=== PATIENT | female | born 1970 | race Two or more races ===

== ENCOUNTER → 2017-08-12 | Outpatient (CLI) | payer MEDICAID ==
[~2017-08-12] MED LIST: BUPR-126 PO; MULT1CAP59 PO; TRAZ150T8 PO; [UNRECOGNIZED DRUG - CODE] OU
--- NOTE | 2017-08-12 15:15 | RADIOLOGY IMAGING REPORT ---
FACILITY: [facility] [place] PATIENT NAME: Eli Winkler : 1970 MR: [id number] V: [id number] EXAM DATE: ORDERING PHYSICIAN: JOSE DC TECHNOLOGIST: Location: [facility] Patient: Eli Winkler : 1970 Visit/Account:[id number] Date of Sevice: 08/12/2017 Exam type: KNEE 3 VIEWS BILATERAL History: Pain in both knees and right elbow x1 year Comparison: None. Findings: Three views of both knees reveal mild narrowing of the medial compartment bilaterally. There is no d emonstration of acute fracture dislocation or intra-articular loose body in either knee. No lytic or blastic bone lesions are seen IMPRESSION: 1. Mild narrowing the medial compartment of both knees Report Dictated By: Gena Woodson MD at 08/12/2017 3:08 PM Report E-Signed By: Gena Woodson MD at 08/12/2017 3:10 PM WSN:[email or web address]
--- NOTE | 2017-08-12 15:17 | RADIOLOGY IMAGING REPORT ---
FACILITY: [facility] - [place] PATIENT NAME: Eli Winkler : 1970 MR: [id number] V: [id number] EXAM DATE: ORDERING PHYSICIAN: JOSE DC TECHNOLOGIST: Location: [facility] Patient: Eli Winkler : 1970 Visit/Account:[id number] Date of Sevice: 08/12/2017 Exam type: ELBOW 3 VIEWS RIGHT History: Pain x1 year Comparison: None. Findings: There is a curvilinear bony density projecting just medial to the medial humeral epicondyle. This ma y be the sequelae of old trauma or degenerative in nature. There is no evidence of acute fracture or dislocation involving the right elbow. No evidence of an intra-articular effusion. No lytic or merritt stic bone lesion is seen IMPRESSION: 1. Small curvilinear bony density projects just medial to the medial humeral epicondyles which could be the sequelae of old trauma or degenerative in nature Report Dictated By: Gena Woodson MD at 08/12/2017 3:10 PM Report E-Signed By: Gena Woodson MD at 08/12/2017 3:12 PM WSN:[email or web address]
== END ==
LOC: RAD 08:25
PROVIDERS: ATTEND Family Medicine
DX: M25.562 Pain in left knee (principal); M25.561 Pain in right knee; M25.521 Pain in right elbow; M25.511 Pain in right shoulder; E66.9 Obesity, unspecified
CPT/HCPCS: 36415; 82040; 82247; 82310; 82374; 82435; 82565; 82947; 83036; 84075; 84132; 84155; 84295; 84443; 84450; 84460; 84520; 85027; 85651; 86140; 86430

== ENCOUNTER → 2018-03-17 | Outpatient (CLI) | payer MEDICAID ==
[2018-03-17 11:16] LABS: LDL CHOLESTEROL 75 mg/dl
--- NOTE | 2018-03-17 11:43 | RADIOLOGY IMAGING REPORT ---
FACILITY: [facility] PATIENT NAME: ALONSO DE LA ROSA : [id number] MR: [id number] V: [id number] EXAM DATE: ORDERING PHYSICIAN: MILLIE ARREDONDO TECHNOLOGIST: Estrella Antoine PROCEDURE:BILATERAL DIGITAL SCREENING MAMMOGRAM WITH CAD ASSISTED INTERPRETATION & 3D TOMOSYNTHESIS COMPARISON:None. This is the patient's baseline mammogram. INDICATIONS:SCREENING FINDINGS: A small amount of fibroglandular tissue is seen throughout the breasts. There is a small nodular area in the lateral portion of the Right breast on the Right CC view in the middle 1/3 for which Spot compression is recommended. There is a vague area of increased density in the upper portion of the Left breast on the Left MLO view in the middle 1/3 for which Spot compression view is recommended. Also noted is a nodular density in the inferior portion of the Left breast in the anterior 1/3 for which Spot compression view is recommended. There is a vague area of increased density just lateral to midline junction of the middle and anterior 1/3 of the Left breast on Left CC view for which Spot compression view is recommended. DIAGNOSTIC CATEGORY 0--INCOMPLETE: NEED ADDITIONAL IMAGING EVALUATION. RECOMMENDATIONS: ADDITIONAL MAMMOGRAPHIC VIEWS REQUIRED: BILATERAL BREASTS. ULTRASOUND: BILATERAL BREASTS. IMPRESSION: BIRADS 0: Incomplete. Additional views of both breasts recommend as described and possibly bilateral breast Ultrasound depending upon the additional imaging findings. Dictated by: Gena Woodson M.D. on 03/17/2018 at 10:31 Transcribed by: HARDEEP on 03/17/2018 at 11:16 Approved by: Gena Woodson M.D. on 03/17/2018 at 11:42 [facility]
== END ==
LOC: MAMO 03-05 07:08
PROVIDERS: ATTEND Nurse Practitioner Family
DX: Z12.31 Encounter for screening mammogram for malignant neoplasm of breast (principal); E11.8 Type 2 diabetes mellitus with unspecified complications; I10 Essential (primary) hypertension; R92.8 Other abnormal and inconclusive findings on diagnostic imaging of breast
CPT/HCPCS: 36415; 77063; 77067; 82040; 82043; 82247; 82310; 82374; 82435; 82465; 82565; 82947; 83718; 84075; 84132; 84155; 84295; 84450; 84460; 84478; 84520

== ENCOUNTER → 2018-04-07 | Outpatient (CLI) | payer MEDICAID ==
--- NOTE | 2018-04-08 13:07 | RADIOLOGY IMAGING REPORT ---
FACILITY: [facility] - [place] PATIENT NAME: ALONSO DE LA ROSA : [id number] MR: [id number] V: [id number] EXAM DATE: ORDERING PHYSICIAN: MILLIE ARREDONDO TECHNOLOGIST: Kristal Delgado RDMS PROCEDURE:US LEFT BREAST COMPLETE COMPARISON:Today's Left diagnostic mammogram. INDICATIONS:Further Evaluation. FINDINGS: The entire Left breast was imaged revealing no sonographic abnormality to account for the nodular densities seen posterior to mid nipple line on the Left CC view and inferior to the nipple on the Left MLO view therefore 6 month follow-up bilateral mammogram recommended as described in Today's mammogram report. DIAGNOSTIC CATEGORY 3--PROBABLY BENIGN FINDING. RECOMMENDATIONS: SIX MONTH FOLLOW-UP DIAGNOSTIC MAMMOGRAM: BILATERAL BREASTS. IMPRESSION: BIRADS 3: Probably benign finding. A 6 month follow-up bilateral mammogram recommended as described above. Dictated by: Gena Woodson M.D. on 04/07/2018 at 18:11 Transcribed by: HARDEEP on 04/08/2018 at 9:03 Approved by: Gena Woodson M.D. on 04/08/2018 at 13:05 [facility]
--- NOTE | 2018-04-08 13:07 | RADIOLOGY IMAGING REPORT ---
FACILITY: [facility] PATIENT NAME: ALONSO DE LA ROSA : [id number] MR: [id number] V: [id number] EXAM DATE: [id number] ORDERING PHYSICIAN: MILLIE ARREDONDO TECHNOLOGIST: Khushi Garza PROCEDURE:BILATERAL DIAGNOSTIC DIGITAL MAMMOGRAM WITH CAD ASSISTED INTERPRETATION & 3D TOMOSYNTHESIS COMPARISON:Prior mammogram 03/17/18. INDICATIONS:FURTHER EVAL FINDINGS: The patient returned for Spot compression views in the Right & Left CC projections and the Left MLO projection. There is a small nodular density seen in the mid to posterior 1/3 of the Right breast just lateral to midline. A small nodular density is also seen posterior to midline on the Left CC view. There also appears to be a small nodular density in the anterior 1/3 of the Left breast just inferior to the mid nipple line. The other additional areas of increased density in the upper portion of the Left breast on the prior MLO view appear compressible. No sonographic correlate could be found to account for these nodular densities therefore a 6 month follow-up bilateral mammogram is recommended unless clinical findings warrant more immediate attention. DIAGNOSTIC CATEGORY 3--PROBABLY BENIGN FINDING. RECOMMENDATIONS: SIX MONTH FOLLOW-UP DIAGNOSTIC MAMMOGRAM: BILATERAL BREASTS. IMPRESSION: BIRADS 3: Probably benign finding. A 6 month follow-up bilateral mammogram is recommended as described above. Dictated by: Gena Woodson M.D. on 04/07/2018 at 18:09 Transcribed by: HARDEEP on 04/08/2018 at 8:50 Approved by: Gena Woodson M.D. on 04/08/2018 at 13:05 [facility]
--- NOTE | 2018-04-08 13:07 | RADIOLOGY IMAGING REPORT ---
FACILITY: [facility] - [place] PATIENT NAME: ALONSO DE LA ROSA : [id number] MR: [id number] V: [id number] EXAM DATE: ORDERING PHYSICIAN: MILLIE ARREDONDO TECHNOLOGIST: Kristal Delgado RDMS PROCEDURE:US RIGHT BREAST COMPARISON:Today's diagnostic mammogram. INDICATIONS:Further Evaluation FINDINGS: The lateral portion of the Right breast was imaged in the 6-12 o'clock position revealing no sonographic abnormality to account for the nodular density seen just lateral to midline on Today's mammogram. There is an incidental 1.2cm fatty replaced lymph node in the 9 o'clock position of the Right breast 17cm from the nipple. DIAGNOSTIC CATEGORY 3--PROBABLY BENIGN FINDING. RECOMMENDATIONS: SIX MONTH FOLLOW-UP DIAGNOSTIC MAMMOGRAM: BILATERAL BREASTS. IMPRESSION: BIRADS 3: Probably benign finding. A 6 month follow-up bilateral mammogram is recommended to evaluate the small nodular density seen just lateral to the nipple on the recent Right CC view. Dictated by: Gena Woodson M.D. on 04/07/2018 at 18:12 Transcribed by: HARDEEP on 04/08/2018 at 8:55 Approved by: Gena Woodson M.D. on 04/08/2018 at 13:05 [facility]
== END ==
LOC: MAMO 01:51
PROVIDERS: ATTEND Nurse Practitioner Family
DX: R92.8 Other abnormal and inconclusive findings on diagnostic imaging of breast (principal)
CPT/HCPCS: 77062; 77066